=== PATIENT | female | born 1965 | race African-American/Black ===

== ENCOUNTER 2016-07-16 16:48 | Emergency (ER) | payer OTHER ==
[~2016-07-16] VITALS: Ht 162.6 cm; Wt 110.0 kg
[2016-07-16] MEDS ORDERED: ALBUTEROL (0.5%) 2.5MG/0.5ML NEB HHN ONE (18:00)
[2016-07-16] MEDS ORDERED: VISCOUS LIDOCAINE 2% 15 ML UDC MM ONE (18:00)
[2016-07-16] MEDS ORDERED: DIPHENHYDRAMINE 50MG CAPSULE PO ONE (18:15)
[2016-07-16 18:33] LABS: EOSINOPHILS % 3.8 % (0.0-5.0); HEMATOCRIT. 37.1 % (36.0-48.0); HEMOGLOBIN. 12.5 g/dL (12.0-16.0); LYMPHOCYTES % 35.1 % (20.0-50.0); MEAN CORPUSCULAR VOLUME 85.6 fL (81.0-99.0); MEAN PLATELET VOLUME 8.6 fl (7.4-10.4); MONOCYTES % 8.4 % (2.0-8.0); NEUTROPHILS % 51.7 % (40.0-76.0); PLATELET 222 x1000/uL (130-400); RED BLOOD CELL COUNT 4.33 mill/uL (4.2-5.4); RED CELL DISTRIBUTION WIDTH 14.6 % (11.6-14.6)
[2016-07-16 18:36] LABS: CHLORIDE 107 mEq/L (98-107)
[2016-07-16 18:39] LABS: PROTHROMBIN TIME 10.7 sec
[2016-07-16 18:47] LABS: CARBON DIOXIDE 30 mEq/L (21-32)
[2016-07-16] MEDS ORDERED: ALBUTEROL (0.083%) 2.5MG/3ML NEB ONE (19:07)
[2016-07-16 19:20] VITALS: BP 164/107
== END 2016-07-16 20:17 | disposition home or self-care (01) ==
LOC: ER 16:49
DX: T54.91XA Toxic effect of unspecified corrosive substance, accidental (unintentional), initial encounter (principal); J45.909 Unspecified asthma, uncomplicated; I10 Essential (primary) hypertension; Z88.8 Allergy status to other drugs, medicaments and biological substances; Y92.89 Other specified places as the place of occurrence of the external cause
CPT/HCPCS: 36415; 71010; 80053; 85025; 85610; 94640; 99285; J7611; Z7610; Q0163